=== PATIENT | male | born 1970 | race Caucasian/White ===

== ENCOUNTER 2020-02-24 17:36 | Emergency (ER) | payer OTHER, SELFPAY ==
[2020-02-24 17:52] VITALS: BP 164/86; PULSE 99; RESP 16; TEMP 37.1; O2SAT 96
--- NOTE | 2020-02-24 17:56 | ED.GENADULT ---
HPI - General Adult General Chief complaint: Unspecified Stated complaint: swelling in right forearm History of Present Illness HPI narrative: Beni is a 49-year-old man with a PMH of CARMELITA and seasonal asthma that presents to the emergency department with swelling in his forearm after being stung by a bee approximately 2 hours ago. He has been stung several times in the past but this is the 1st time he has had a reaction. He has had several stings recently as he has started raising B's. Over the last 2 days he has had increasing pain and swelling in the hand. He denies any swelling of his tongue or throat as well as CP, SOB, N/V/D. Related Data Allergies Allergy/AdvReac Type Severity Reaction Status Date / Time No Known Allergies Allergy Unverified 07/13/16 16:47 Review of Systems Constitutional: Constitutional: Denies chills, Denies fever(s) and Denies weakness Eyes: Eyes: Reports as per HPI ENT: Reports system reviewed and no additional complaints, except as documented Cardiovascular: Cardiovascular: Reports no additional cardiovascular complaints Respiratory: Respiratory: Reports no additional respiratory complaints Gastrointestinal: Gastrointestinal: Reports no additional gastrointestinal complaints Musculoskeletal: Musculoskeletal: Reports no additional musculoskeletal complaints Integumentary/Breasts: Skin/Breast: Reports as per HPI Neurologic: Reports system reviewed and no additional complaints, except as documented Psychiatric: Psychiatric: Reports no additional psychiatric complaints Endocrine: Endocrine: Reports no additional endocrine complaints Hematologic/Lymphatic: Hematologic/Lymphatic: Reports no additional hematologic/lymphatic complaints Allergic/Immunologic: Allergic/Immunologic: Reports no additional allergic/immunologic complaints Exam Const: General: no acute distress and alert Orientation/consciousness: patient oriented x3 Limitations: No altered mental status HENMT: Other: normocephalic, atraumatic, moist mucous membranes, no lip tongue or airway swelling Eyes: Conjunctivae: conjunctivae normal Pupils: Equal, round and reactive pupils present Neck: Neck: normal visual inspection Resp: Effort & Inspection: normal respiratory effort, not labored and no use of accessory muscles Auscultation: clear to auscultation bilaterally and no wheezes Cardio: Rate: regular rate Rhythm: regular rhythm Heart sounds: no murmurs GI: GI Palp: Yes Soft to palpation and No Tenderness to palpation present (GI) Skin: Other: right wrist is swollen as well as the right hand. peripheral sensation is intact with normal parole or probation officer strength Neuro: General: patient oriented x3 and moves all extremities Other: sensation intact in all dermatomes of the right hand Extrem: General: normal to inspection Psych: Mental Status: mental status grossly normal Course Course Emergency Course: Beni was seen and evaluated. Ordered IM benadryl and pepsid. He was observed for 1 more hour (total of 3 hours after the sting). After the hour he continued to have no tongue/lip swelling and no SOB. He was given an epi script, given return precautions and discharged. Vital Signs Vital signs: Vital Signs Temperature 37.1 C 02/24/20 17:52 Pulse Rate 99 02/24/20 17:52 Respiratory Rate 16 02/24/20 17:52 Blood Pressure 164/86 H 02/24/20 17:52 Pulse Oximetry 96 02/24/20 17:52 Temperature 37.1 C 02/24/20 17:52 Pulse Rate 94 02/24/20 19:23 Respiratory Rate 20 02/24/20 19:23 Blood Pressure 121/79 02/24/20 19:23 Pulse Oximetry 96 02/24/20 19:23 Medical Decision Making Vital Signs Vital Signs: Vital Signs Temperature 37.1 C 02/24/20 17:52 Pulse Rate 99 02/24/20 17:52 Respiratory Rate 16 02/24/20 17:52 Blood Pressure 164/86 H 02/24/20 17:52 Pulse Oximetry 96 02/24/20 17:52 Temperature 37.1 C 02/24/20 17:52 Pulse Rate 94 02/24/20 19:23 Respiratory Rate 20
[2020-02-24] MEDS: FAMOTIDINE 20 MG TABLET PO (18:06)
[2020-02-24 19:23] VITALS: BP 121/79; PULSE 94; RESP 20; O2SAT 96
== END 2020-02-24 19:24 | disposition home or self-care (01) ==
PROVIDERS: Emergency Provider Family Medicine; PCP Family Medicine
DX: T63.441A Toxic effect of venom of bees, accidental (unintentional), initial encounter (principal); M79.89 Other specified soft tissue disorders
CPT/HCPCS: 96372; 99283; A9270; J1200

== ENCOUNTER 2021-05-30 14:07 | Outpatient (CLI) | payer OTHER, SELFPAY | END 2021-05-30 14:08 | disposition home or self-care (01) | LOC: CHSOUTPT 14:11 | PROVIDERS: PCP Family Medicine; Visit Provider Specialist | DX: L98.9 Disorder of the skin and subcutaneous tissue, unspecified (principal) | CPT/HCPCS: 88305; 88342 ==

== ENCOUNTER 2021-08-29 14:57 | Outpatient (CLI) | payer OTHER, SELFPAY | END 2021-08-29 14:58 | disposition home or self-care (01) | PROVIDERS: PCP Family Medicine; Visit Provider Specialist | DX: L98.9 Disorder of the skin and subcutaneous tissue, unspecified (principal) | CPT/HCPCS: 88305; 88342 ==